=== PATIENT | male | born 1945 | race Caucasian/White ===

== ENCOUNTER → 2020-10-18 | Outpatient (CLI) | payer MEDICARE, OTHER ==
[~2020-10-18] MED LIST: ASPI81EC PO; Adult Low Dose81 MG PO; COSAMIN ASU CA1 EAC1 PO; PANT40 PO; POTCIT10 PO; VITAMIN B-6 PO; VITAMIN D-32000 UNIT PO
== END | disposition home or self-care (01) ==
LOC: LAB SHORT 08:46 → PLD 08:46
DX: D04.5 Carcinoma in situ of skin of trunk (principal)
CPT/HCPCS: 88305

== ENCOUNTER 2021-02-03 07:04 | Day surgery (SDC) | payer MEDICARE, OTHER ==
[~2021-02-03] VITALS: Ht 177.8 cm; Wt 85.6 kg
== END 2021-02-03 09:43 | disposition home or self-care (01) ==
LOC: ORSCSDS 07:04
PROVIDERS: Orthopaedic Surgery
PROC: 01N50ZZ Release Median Nerve, Open Approach (ICD-10-PCS; principal; 2021-02-03 08:15)
DX: G56.01 Carpal tunnel syndrome, right upper limb (principal); I10 Essential (primary) hypertension; K76.0 Fatty (change of) liver, not elsewhere classified; Z79.899 Other long term (current) drug therapy; K22.70 Barrett's esophagus without dysplasia; Z79.82 Long term (current) use of aspirin
CPT/HCPCS: J0171; J0690; J1100; J2250; J2405; J2704; J7120

== ENCOUNTER → 2021-04-25 | Outpatient (CLI) | payer MEDICARE, OTHER | END | disposition home or self-care (01) | LOC: LAB SHORT 08:15 | DX: L82.1 Other seborrheic keratosis (principal) | CPT/HCPCS: 88305 ==

== ENCOUNTER 2023-02-08 07:58 | Day surgery (SDC) | payer MEDICARE, OTHER ==
[~2023-02-08] VITALS: Ht 175.3 cm; Wt 84.4 kg
[2023-02-08] MEDS ORDERED: MULVITA PO (08:25)
--- NOTE | 2023-02-08 08:25 | NUR ---
02/08/23 [address] KENNEDY; SEE ANESTHESIA RECORDS.
[2023-02-08 08:31] VITALS: BP 179/82
[2023-02-08 10:16] VITALS: BP 99/64
[2023-02-08 10:25] VITALS: BP 106/70
[2023-02-08 10:45] VITALS: BP 117/73
--- NOTE | 2023-02-08 10:51 | NUR ---
Patient up to Ambulate independently. Gait steady. Discharge instructions reviewed with patient. Patient verbalizes understanding. Copy given to patient to take home. Patient States Post-Procedure ride home has been arranged. Discharged via wheelchair to private car for ride home. ALL BELONGINGS RETURNED TO PATIENT.
== END 2023-02-08 22:32 | disposition home or self-care (01) ==
LOC: ORSCMMR 07:58 → ORSCSDS 09:30 → ORSCMMR 22:32
PROVIDERS: Surgery
PROC: 0DJD8ZZ Inspection of Lower Intestinal Tract, Via Natural or Artificial Opening Endoscopic (ICD-10-PCS; principal; 2023-02-08 09:30)
DX: Z12.11 Encounter for screening for malignant neoplasm of colon (principal); N18.9 Chronic kidney disease, unspecified; K21.9 Gastro-esophageal reflux disease without esophagitis; Z79.899 Other long term (current) drug therapy; Z79.82 Long term (current) use of aspirin
CPT/HCPCS: J2001; J2704; J7120